=== PATIENT | female | born 1955 | race Caucasian/White ===

== ENCOUNTER 2019-08-13 06:17 | Inpatient (IN) ==
[~2019-08-13 06:17] MED LIST: DIAZEPAM 5 MG TABLET PO ONE; MAGNESIUM SULF RIDER 2 GM in PREMIX 1 EACH IV PRN; POTASSIUM CHLORIDE RIDER 10 MEQ in PREMIX 1 EACH IV PRN; diphenhydrAMINE CAP 25 MG CAPSULE PO ONE
[2019-08-13] MEDS ORDERED: DIAZEPAM 5 MG TABLET ONE (07:02)
[2019-08-13] MEDS ORDERED: diphenhydrAMINE CAP 25 MG CAPSULE ONE (07:02)
[2019-08-13] MEDS: SODIUM CHLORIDE 0.9% 1,000 ML IV SCH ×3 (07:06→22:10)
[2019-08-13] MEDS ORDERED: fentaNYL 100 MCG/2 ML VIAL ONE (07:29)
[2019-08-13] MEDS ORDERED: MIDAZOLAM 2 MG/2 ML VIAL ONE (07:29)
[2019-08-13] MEDS ORDERED: LIDOCAINE 1% 20 ML VIAL ONE ×2 (07:30→13:52)
[2019-08-13 07:57] LABS: ABG Base Excess -0.5 MMOL/L (-2.5-2.5); ABG HCO3 23.6 MMOL/L (20-26); ABG Oxygen Saturation 78.7 % (95-100); ABG PCO2 42.6 MM HG (35-48); ABG PH 7.374 (7.35-7.45); ABG PO2 46.9 MM HG (80-95); ABG TCO2 21.8 MMOL/L (23-27)
[2019-08-13] MEDS ORDERED: HYDROmorphone 2 MG/1 ML VIAL ONE (08:56)
[2019-08-13] MEDS ORDERED: HYDROmorphone 2 MG/1 ML VIAL IV ONE ×3 (09:06→12:00)
[2019-08-13] MEDS ORDERED: HEPARIN 5,000 UNIT/1 ML VIAL IV STA (11:42)
[2019-08-13 12:21] LABS: Basophils % 0.4 % (0.0-0.8); Eosinophils % 0.1 % (0.00-10.9); Hematocrit 44.5 VOL% (35.7-47.0); Hemoglobin 13.5 GM/DL (12.0-16.0); Immature Granulocytes % 0.3 %; Immature Granulocytes Absolute 0.02 #; Lymphocytes % 13.8 % (21.3-54.2); Mean Corpuscular HGB Conc 30.3 GM/DL (32-36); Mean Corpuscular Volume 103.2 FL (87-102); Mean Platelet Volume 11.7 FL (9.6-12.0); Monocytes % 4.1 % (1.7-12.7); Neutrophils % 81.3 % (38.7-73.9); Platelet Count 77 T/CUMM (130-400); Red Blood Count 4.31 MC/CUMM (3.8-5.5); Red Cell Distribution Width 15.8 % (9.3-17.3); White Blood Count 6.9 T/CUMM (4-12)
[2019-08-13 12:36] LABS: INR 1.2; PT Patient Result 13.5 SECS (9.6-12.2)
[2019-08-13 12:40] LABS: Partial Thromboplastin Time 193.5 SECS (20.8-36.0)
[2019-08-13 12:52] LABS: Albumin 3.3 G/DL (3.4-5.0); Bilirubin,Total 1.8 MG/DL (0.2-1.0); Calcium 8.8 MG/DL (8.5-10.1); Total Protein 6.9 G/DL (6.4-8.3)
[2019-08-13] MEDS ORDERED: THROMBIN TOPICAL (RECOMBINANT) 5,000 UNIT VIAL TOP ONE (13:50)
[2019-08-13] MEDS ORDERED: HEPARIN 5,000 UNIT/1 ML VIAL ONE (13:51)
[2019-08-13] MEDS ORDERED: BUPIVACAINE 0.5% 50 ML VIAL ONE (13:51)
[2019-08-13] MEDS ORDERED: VANCOMYCIN 500 MG VIAL ONE (14:39)
[2019-08-13 15:23] LABS: Apearance,Urine CLEAR (Clear); Bilirubin,Urine Negative (Negative); Blood, Urine Negative (Negative); Glucose,Urine (UA) Negative (Negative); Ketones,Urine Negative (Negative); Nitrite,Urine Negative (Negative); Protein,Urine 30 MG/DL; RBC,Urine 1 /HPF (0-4); Squamous Epithelial Cell,Urine Occasional /HPF (0-10); Urine Color Yellow (Yellow); Urine Specific Gravity > 1.060 (1.001-1.035)
[2019-08-13] MEDS ORDERED: TISSUE ADHESIVE 1 EACH APPLICATOR TOP ONE (15:52)
[2019-08-13] MEDS ORDERED: HYDROmorphone 2 MG/1 ML VIAL IV PRN (16:03)
[2019-08-13] MEDS ORDERED: ONDANSETRON 4 MG/2 ML VIAL IV PRN (16:03)
[2019-08-13] MEDS ORDERED: HEPARIN 10,000 UNIT/10 ML VIAL ONE (16:22)
[2019-08-13] MEDS ORDERED: SEVOFLURANE 1 UNIT/15 MINUTE INH ONE (16:22)
[2019-08-13] MEDS ORDERED: propofoL 200 MG/20 ML VIAL IV ONE (16:22)
[2019-08-13] MEDS ORDERED: DEXAMETHASONE 4 MG/1 ML VIAL ONE (16:22)
[2019-08-13] MEDS ORDERED: LIDOCAINE 2% 5 ML VIAL ONE (16:22)
[2019-08-13] MEDS ORDERED: PHENYLEPHRINE 10 MG/1 ML VIAL IV ONE (16:22)
[2019-08-13] MEDS ORDERED: ONDANSETRON 4 MG/2 ML VIAL ONE (16:22)
[2019-08-13] MEDS ORDERED: LACTATED RINGERS 1,000 ML IV SCH (16:30)
[2019-08-13 16:39] LABS: Basophils % 0.5 % (0.0-0.8); Eosinophils % 0.2 % (0.00-10.9); Hematocrit 41.3 VOL% (35.7-47.0); Hemoglobin 12.8 GM/DL (12.0-16.0); Immature Granulocytes % 0.5 %; Immature Granulocytes Absolute 0.03 #; Lymphocytes # 0.5 10*3/uL (1.4-4.0); Lymphocytes % 7.4 % (21.3-54.2); Mean Corpuscular Volume 102.7 FL (87-102); Mean Platelet Volume 11.9 FL (9.6-12.0); Monocytes % 2.6 % (1.7-12.7); Neutrophils % 88.8 % (38.7-73.9); Platelet Count 71 T/CUMM (130-400); Red Blood Count 4.02 MC/CUMM (3.8-5.5); Red Cell Distribution Width 15.9 % (9.3-17.3); White Blood Count 6.1 T/CUMM (4-12)
[2019-08-13] MEDS ORDERED: diphenhydrAMINE CAP 25 MG CAPSULE PO PRN (17:00)
[2019-08-13] MEDS ORDERED: MAGNESIUM HYDROXIDE SUSP 30 ML UDCUP PO PRN (17:00)
[2019-08-13] MEDS: DOXEPIN 25 MG CAPSULE PO SCH (21:42)
[2019-08-13] MEDS: ATORVASTATIN 40 MG TABLET PO SCH (21:42)
[2019-08-14 05:13] LABS: Basophils % 0.2 % (0.0-0.8); Hematocrit 41.6 VOL% (35.7-47.0); Hemoglobin 12.8 GM/DL (12.0-16.0); Immature Granulocytes % 0.4 %; Immature Granulocytes Absolute 0.02 #; Lymphocytes # 0.6 10*3/uL (1.4-4.0); Lymphocytes % 11.2 % (21.3-54.2); Mean Corpuscular HGB Conc 30.8 GM/DL (32-36); Mean Corpuscular Volume 102.5 FL (87-102); Mean Platelet Volume 13.1 FL (9.6-12.0); Monocytes % 4.7 % (1.7-12.7); Neutrophils % 83.5 % (38.7-73.9); Red Blood Count 4.06 MC/CUMM (3.8-5.5); Red Cell Distribution Width 15.6 % (9.3-17.3); White Blood Count 5.2 T/CUMM (4-12)
[2019-08-14 05:24] LABS: Platelet Count 69 T/CUMM (130-400)
[2019-08-14 05:27] LABS: Osmolality,Calculated 275.8 MOS/KG (273-304)
[2019-08-14 05:47] LABS: Macrocytosis Slight; Platelet Estimate Decreased
[2019-08-14] MEDS: LEVOTHYROXINE 75 MCG TABLET PO SCH (06:36)
[2019-08-14] MEDS: SODIUM CHLORIDE 0.9% 1,000 ML IV SCH (07:43)
[2019-08-14] MEDS: FUROSEMIDE 40 MG TABLET PO SCH (10:12)
[2019-08-14] MEDS: SILDENAFIL 20 MG TABLET PO SCH ×3 (10:12→21:18)
[2019-08-14] MEDS: ESTRADIOL 1 MG TABLET PO SCH (10:12)
[2019-08-14] MEDS: predniSONE 20 MG TABLET PO SCH (10:12)
[2019-08-14] MEDS: PANTOPRAZOLE 40 MG TABLET PO SCH (10:13)
[2019-08-14] MEDS: CLOPIDOGREL 75 MG TABLET PO SCH (10:13)
[2019-08-14] MEDS ORDERED: ALBUTEROL 2.5 MG/3 ML NEB RESP TX PRN (11:00)
[2019-08-14] MEDS: ALBUTEROL/IPRATROPIUM 3 ML NEB RESP TX SCH ×2 (13:30→19:33)
[2019-08-14] MEDS: METOPROLOL TARTRATE 25 MG TABLET PO SCH ×2 (14:43→21:18)
[2019-08-14] MEDS: DOXEPIN 25 MG CAPSULE PO SCH (21:18)
[2019-08-14] MEDS: ATORVASTATIN 40 MG TABLET PO SCH (21:18)
[2019-08-15] MEDS: ALBUTEROL/IPRATROPIUM 3 ML NEB RESP TX SCH ×4 (01:02→19:10)
[2019-08-15 06:16] LABS: Basophils % 0.1 % (0.0-0.8); Hematocrit 35.9 VOL% (35.7-47.0); Hemoglobin 11.2 GM/DL (12.0-16.0); Immature Granulocytes % 0.3 %; Immature Granulocytes Absolute 0.02 #; Lymphocytes # 0.7 10*3/uL (1.4-4.0); Lymphocytes % 9.2 % (21.3-54.2); Mean Corpuscular HGB Conc 31.2 GM/DL (32-36); Mean Corpuscular Volume 101.7 FL (87-102); Neutrophils % 82.4 % (38.7-73.9); Platelet Count 65 T/CUMM (130-400); Red Blood Count 3.53 MC/CUMM (3.8-5.5); Red Cell Distribution Width 15.9 % (9.3-17.3); White Blood Count 7.4 T/CUMM (4-12)
[2019-08-15] MEDS: LEVOTHYROXINE 75 MCG TABLET PO SCH (06:24)
[2019-08-15 06:30] LABS: Calcium 8.2 MG/DL (8.5-10.1); Osmolality,Calculated 285.4 MOS/KG (273-304)
[2019-08-15 06:41] LABS: Hypochromasia 1+; Lymphocytes 4 % (20-55); Platelet Estimate Decreased; Segmented Neutrophils 89 % (50-85); Total Cells Counted 100
[2019-08-15 06:42] LABS: Macrocytosis Slight
[2019-08-15] MEDS: METOPROLOL TARTRATE 25 MG TABLET PO SCH ×2 (09:07→20:32)
[2019-08-15] MEDS: ESTRADIOL 1 MG TABLET PO SCH (09:08)
[2019-08-15] MEDS: PANTOPRAZOLE 40 MG TABLET PO SCH (09:08)
[2019-08-15] MEDS: predniSONE 20 MG TABLET PO SCH (09:08)
[2019-08-15] MEDS: CLOPIDOGREL 75 MG TABLET PO SCH (09:08)
[2019-08-15] MEDS: SILDENAFIL 20 MG TABLET PO SCH ×3 (09:08→20:33)
[2019-08-15] MEDS: FUROSEMIDE 40 MG TABLET PO SCH (11:20)
[2019-08-15] MEDS ORDERED: MAGNESIUM SULF RIDER 2 GM in PREMIX 1 EACH IV PRN (13:25)
[2019-08-15] MEDS: POTASSIUM CHLORIDE 20 MEQ TABLET PO PRN ×3 (15:10→20:33)
[2019-08-15] MEDS: ATORVASTATIN 40 MG TABLET PO SCH (20:32)
[2019-08-15] MEDS: DOXEPIN 25 MG CAPSULE PO SCH (20:32)
[2019-08-16] MEDS: ALBUTEROL/IPRATROPIUM 3 ML NEB RESP TX SCH ×2 (00:57→07:36)
[2019-08-16 02:43] LABS: Basophils % 0.1 % (0.0-0.8); Hematocrit 37.6 VOL% (35.7-47.0); Hemoglobin 11.4 GM/DL (12.0-16.0); Immature Granulocytes % 0.5 %; Immature Granulocytes Absolute 0.04 #; Lymphocytes # 0.6 10*3/uL (1.4-4.0); Lymphocytes % 7.5 % (21.3-54.2); Mean Corpuscular HGB Conc 30.3 GM/DL (32-36); Mean Corpuscular Volume 102.7 FL (87-102); Mean Platelet Volume 11.8 FL (9.6-12.0); Monocytes % 6.9 % (1.7-12.7); Platelet Count 67 T/CUMM (130-400); Red Blood Count 3.66 MC/CUMM (3.8-5.5); Red Cell Distribution Width 15.8 % (9.3-17.3); White Blood Count 8.4 T/CUMM (4-12)
[2019-08-16 02:59] LABS: Calcium 8.1 MG/DL (8.5-10.1); Osmolality,Calculated 282.5 MOS/KG (273-304)
[2019-08-16] MEDS: LEVOTHYROXINE 75 MCG TABLET PO SCH (06:08)
[2019-08-16] MEDS: SILDENAFIL 20 MG TABLET PO SCH (08:23)
[2019-08-16] MEDS: CLOPIDOGREL 75 MG TABLET PO SCH (08:23)
[2019-08-16] MEDS: predniSONE 20 MG TABLET PO SCH (08:23)
[2019-08-16] MEDS: PANTOPRAZOLE 40 MG TABLET PO SCH (08:23)
[2019-08-16] MEDS: FUROSEMIDE 40 MG TABLET PO SCH (08:23)
[2019-08-16] MEDS: ESTRADIOL 1 MG TABLET PO SCH (08:23)
[2019-08-16] MEDS: METOPROLOL TARTRATE 25 MG TABLET PO SCH (08:25)
[2019-08-16 12:05] VITALS: BP 104/52
== END 2019-08-16 15:15 | disposition home or self-care (01) | DRG 253 ==
LOC: N.CL 06:17 → N.ICU 17:08 → N.5E 08-15 17:45
PROVIDERS: ADMIT Internal Medicine Cardiovascular Disease; ATTEND Internal Medicine Cardiovascular Disease

== ENCOUNTER 2019-09-28 08:50 | Inpatient (IN) ==
[2019-09-28] MEDS ORDERED: LACTATED RINGERS 1,000 ML IV ONE ×3 (09:21→16:23)
[2019-09-28 09:31] LABS: Basophils # 0.1 10*3/uL (0.0-0.2); Basophils % 0.4 % (0.0-0.8); Eosinophils # 0.1 10*3/uL (0.0-0.87); Hematocrit 36.4 VOL% (35.7-47.0); Immature Granulocytes % 0.8 %; Lymphocytes # 2.3 10*3/uL (1.4-4.0); Lymphocytes % 18.2 % (21.3-54.2); Mean Corpuscular HGB Conc 30.2 GM/DL (32-36); Mean Corpuscular Volume 99.7 FL (87-102); Mean Platelet Volume 10.8 FL (9.6-12.0); Monocytes % 4.8 % (1.7-12.7); Neutrophils % 74.8 % (38.7-73.9); Platelet Count 128 T/CUMM (130-400); Red Blood Count 3.65 MC/CUMM (3.8-5.5); Red Cell Distribution Width 17.1 % (9.3-17.3); White Blood Count 12.6 T/CUMM (4-12)
[2019-09-28 09:52] LABS: Calcium 8.1 MG/DL (8.5-10.1); Osmolality,Calculated 284.5 MOS/KG (273-304)
[2019-09-28] MEDS ORDERED: MORPHINE 4 MG/1 ML VIAL IV PRN (11:47)
[2019-09-28] MEDS ORDERED: ACETAMINOPHEN 325 MG TABLET PO PRN (11:47)
[2019-09-28] MEDS ORDERED: ONDANSETRON 4 MG/2 ML VIAL IV PRN ×2 (11:47→16:22)
[2019-09-28] MEDS ORDERED: FUROSEMIDE 40 MG TABLET PO PRN (11:53)
[2019-09-28] MEDS ORDERED: ALBUTEROL/IPRATROPIUM 3 ML NEB RESP TX ONE (13:03)
[2019-09-28] MEDS ORDERED: SODIUM CHLORIDE 0.9% 250 ML IV ONE (13:07)
[2019-09-28 13:38] LABS: ABG Base Excess -2.1 MMOL/L (-2.5-2.5); ABG HCO3 22.5 MMOL/L (20-26); ABG Oxygen Saturation 89.4 % (95-100); ABG PCO2 31.2 MM HG (35-48); ABG PH 7.444 (7.35-7.45); ABG PO2 58.4 MM HG (80-95); ABG TCO2 19.8 MMOL/L (23-27)
[2019-09-28] MEDS ORDERED: HEPARIN 5,000 UNIT/1 ML VIAL ONE (13:43)
[2019-09-28 13:49] LABS: Alanine Aminotransferase 12 U/L (13-56); Albumin 2.2 G/DL (3.4-5.0); Alkaline Phosphatase 88 U/L (45-117); Aspartate Amino Transferase 23 U/L (0-37); Bilirubin,Total < 0.39 MG/DL (0.2-1.0); Blood Urea Nitrogen 16 MG/DL (7-18); Calcium 7.9 MG/DL (8.5-10.1); Estimated Glom Filtration Rate 79 ML/MIN; Glucose 83 MG/DL (74-106); Osmolality,Calculated 274.7 MOS/KG (273-304); Total Protein 5.4 G/DL (6.4-8.3)
[2019-09-28] MEDS ORDERED: ALBUTEROL/IPRATROPIUM 3 ML NEB RESP TX PRN (13:49)
[2019-09-28 14:13] LABS: Hematocrit 29.5 VOL% (35.7-47.0)
[2019-09-28] MEDS ORDERED: PNEUMOCOCCAL VACCINE (13 VALENT) 0.5 ML SYRINGE IM ONE (14:16)
[2019-09-28] MEDS: SODIUM CHLORIDE 0.9% 1,000 ML IV SCH ×2 (14:30→20:39)
[2019-09-28] MEDS ORDERED: VANCOMYCIN 1,000 MG VIAL ONE (14:47)
[2019-09-28] MEDS ORDERED: SUGAMMADEX 200 MG/2 ML VIAL IV ONE (15:43)
[2019-09-28] MEDS ORDERED: VANCOMYCIN INJ 1,000 MG in SODIUM CHLORIDE 0.9% 250 ML IV ONE (16:00)
[2019-09-28] MEDS ORDERED: ONDANSETRON 4 MG/2 ML VIAL ONE (16:22)
[2019-09-28] MEDS ORDERED: HYDROmorphone 2 MG/1 ML VIAL IV PRN (16:22)
[2019-09-28] MEDS ORDERED: fentaNYL 100 MCG/2 ML VIAL ONE (16:22)
[2019-09-28] MEDS ORDERED: DESFLURANE 1 UNIT/15 MINUTE INH ONE (16:22)
[2019-09-28] MEDS ORDERED: LIDOCAINE 2% 5 ML VIAL ONE (16:22)
[2019-09-28] MEDS ORDERED: ETOMIDATE 40 MG/20 ML VIAL IV ONE (16:23)
[2019-09-28] MEDS ORDERED: SUCCINYLCHOLINE 200 MG/10 ML VIAL ONE (16:23)
[2019-09-28] MEDS ORDERED: ROCURONIUM 100 MG/10 ML VIAL IV ONE (16:23)
[2019-09-28] MEDS: MORPHINE 10 MG/1 ML VIAL IV PRN ×2 (16:33→16:45)
[2019-09-28] MEDS: SILDENAFIL 20 MG TABLET PO SCH ×2 (16:39→20:33)
[2019-09-28] MEDS: LEVOFLOXACIN INJ 500 MG in PREMIX 1 EACH IV SCH (16:39)
[2019-09-28] MEDS: VANCOMYCIN INJ 750 MG in SODIUM CHLORIDE 0.9% 250 ML IV SCH (18:12)
[2019-09-28] MEDS ORDERED: ALBUTEROL 0.63 MG/3 ML NEB RESP TX PRN (19:00)
[2019-09-28] MEDS: ALBUTEROL/IPRATROPIUM 3 ML NEB RESP TX SCH (20:00)
[2019-09-28 20:18] LABS: Hematocrit 27.4 VOL% (35.7-47.0)
[2019-09-28] MEDS: DOXEPIN 25 MG CAPSULE PO SCH (20:32)
[2019-09-28] MEDS: ATORVASTATIN 40 MG TABLET PO SCH (20:33)
[2019-09-28] MEDS: DOCUSATE SODIUM 100 MG CAPSULE PO SCH (20:33)
[2019-09-28] MEDS: tiZANidine 4 MG TABLET PO SCH (20:33)
[2019-09-28] MEDS: TICAGRELOR 90 MG TABLET PO SCH (20:33)
[2019-09-29] MEDS: ALBUTEROL/IPRATROPIUM 3 ML NEB RESP TX SCH ×4 (00:38→20:26)
[2019-09-29] MEDS: METOPROLOL TARTRATE 25 MG TABLET PO SCH ×3 (01:35→21:50)
[2019-09-29] MEDS: SODIUM CHLORIDE 0.9% 1,000 ML IV SCH ×2 (04:50→12:37)
[2019-09-29 05:07] LABS: Basophils % 0.3 % (0.0-0.8); Eosinophils % 0.4 % (0.00-10.9); Hematocrit 21.4 VOL% (35.7-47.0); Immature Granulocytes % 0.4 %; Immature Granulocytes Absolute 0.03 #; Lymphocytes # 0.6 10*3/uL (1.4-4.0); Lymphocytes % 8.4 % (21.3-54.2); Mean Corpuscular HGB Conc 29.9 GM/DL (32-36); Mean Corpuscular Volume 100.9 FL (87-102); Mean Platelet Volume 11.4 FL (9.6-12.0); Monocytes % 7.1 % (1.7-12.7); Neutrophils % 83.4 % (38.7-73.9); Platelet Count 75 T/CUMM (130-400); Red Blood Count 2.12 MC/CUMM (3.8-5.5); Red Cell Distribution Width 17.3 % (9.3-17.3); White Blood Count 7.4 T/CUMM (4-12)
[2019-09-29 05:11] LABS: Hemoglobin 6.4 GM/DL (12.0-16.0)
[2019-09-29] MEDS ORDERED: FUROSEMIDE 20 MG/2 ML VIAL IV PRN (05:23)
[2019-09-29] MEDS ORDERED: SODIUM CHLORIDE 0.9% 1,000 ML IV PRN (05:23)
[2019-09-29 06:04] LABS: Eosinophils 2 % (0-10); Lymphocytes 6 % (20-55); Platelet Estimate Decreased; Segmented Neutrophils 91 % (50-85); Total Cells Counted 100
[2019-09-29 06:05] LABS: Anisocytosis 1+; Macrocytosis Slight
[2019-09-29 06:06] LABS: Polychromasia Few; Stomatocytes Few
[2019-09-29] MEDS: LEVOTHYROXINE 75 MCG TABLET PO SCH (07:29)
[2019-09-29] MEDS: ESTRADIOL 1 MG TABLET PO SCH (07:59)
[2019-09-29] MEDS: TICAGRELOR 90 MG TABLET PO SCH ×2 (07:59→21:55)
[2019-09-29] MEDS: SILDENAFIL 20 MG TABLET PO SCH ×3 (07:59→21:50)
[2019-09-29] MEDS: DOCUSATE SODIUM 100 MG CAPSULE PO SCH ×2 (07:59→21:55)
[2019-09-29] MEDS: PANTOPRAZOLE 40 MG TABLET PO SCH (07:59)
[2019-09-29] MEDS ORDERED: PANTOPRAZOLE 40 MG TABLET PO SCH (09:00)
[2019-09-29] MEDS: VANCOMYCIN INJ 750 MG in SODIUM CHLORIDE 0.9% 250 ML IV SCH (12:37)
[2019-09-29] MEDS: LEVOFLOXACIN INJ 500 MG in PREMIX 1 EACH IV SCH (13:50)
[2019-09-29 18:13] LABS: Hemoglobin 10.1 GM/DL (12.0-16.0)
[2019-09-29 20:26] LABS: Hematocrit 32.1 VOL% (35.7-47.0); Hemoglobin 9.8 GM/DL (12.0-16.0)
[2019-09-29] MEDS: DOXEPIN 25 MG CAPSULE PO SCH (21:55)
[2019-09-29] MEDS: tiZANidine 4 MG TABLET PO SCH (21:55)
[2019-09-29] MEDS: ATORVASTATIN 40 MG TABLET PO SCH (21:55)
[2019-09-30] MEDS: ALBUTEROL/IPRATROPIUM 3 ML NEB RESP TX SCH ×4 (01:50→22:34)
[2019-09-30] MEDS: SODIUM CHLORIDE 0.9% 1,000 ML IV SCH (03:17)
[2019-09-30] MEDS: VANCOMYCIN INJ 750 MG in SODIUM CHLORIDE 0.9% 250 ML IV SCH (06:06)
[2019-09-30] MEDS: LEVOTHYROXINE 75 MCG TABLET PO SCH (06:06)
[2019-09-30 06:52] LABS: Calcium 7.5 MG/DL (8.5-10.1); Osmolality,Calculated 276.4 MOS/KG (273-304)
[2019-09-30 08:33] LABS: Basophils % 0.1 % (0.0-0.8); Eosinophils % 0.6 % (0.00-10.9); Hematocrit 28.8 VOL% (35.7-47.0); Hemoglobin 8.9 GM/DL (12.0-16.0); Immature Granulocytes % 0.3 %; Immature Granulocytes Absolute 0.02 #; Lymphocytes # 0.6 10*3/uL (1.4-4.0); Lymphocytes % 8.7 % (21.3-54.2); Mean Corpuscular HGB Conc 30.9 GM/DL (32-36); Mean Corpuscular Volume 94.4 FL (87-102); Mean Platelet Volume 11.8 FL (9.6-12.0); Monocytes % 6.7 % (1.7-12.7); Neutrophils % 83.6 % (38.7-73.9); Red Blood Count 3.05 MC/CUMM (3.8-5.5); Red Cell Distribution Width 19.6 % (9.3-17.3); White Blood Count 6.7 T/CUMM (4-12)
[2019-09-30 08:34] LABS: Platelet Count 66 T/CUMM (130-400)
[2019-09-30 08:50] LABS: Hypochromasia 1+; Ovalocytes Slight
[2019-09-30 08:51] LABS: Platelet Estimate Decreased
[2019-09-30] MEDS: MAGNESIUM SULF INJ 2 GM, POTASSIUM CHLORIDE INJ 20 MEQ in SODIUM CHLORIDE 0.9% 1,000 ML IV SCH ×2 (10:58→22:44)
[2019-09-30] MEDS: PANTOPRAZOLE 40 MG TABLET PO SCH (11:01)
[2019-09-30] MEDS: POTASSIUM CHLORIDE RIDER 10 MEQ in PREMIX 1 EACH IV SCH ×2 (11:01→13:33)
[2019-09-30] MEDS: TICAGRELOR 90 MG TABLET PO SCH ×2 (11:02→22:45)
[2019-09-30] MEDS: ESTRADIOL 1 MG TABLET PO SCH (11:02)
[2019-09-30] MEDS: DOCUSATE SODIUM 100 MG CAPSULE PO SCH ×2 (11:02→22:45)
[2019-09-30] MEDS: SILDENAFIL 20 MG TABLET PO SCH ×4 (11:08→22:46)
[2019-09-30] MEDS: METOPROLOL TARTRATE 25 MG TABLET PO SCH ×2 (11:10→22:45)
[2019-09-30] MEDS ORDERED: POTASSIUM CHLORIDE RIDER 10 MEQ in PREMIX 1 EACH IV SCH (13:30)
[2019-09-30] MEDS: LEVOFLOXACIN INJ 500 MG in PREMIX 1 EACH IV SCH (16:45)
[2019-09-30] MEDS: tiZANidine 4 MG TABLET PO SCH (22:45)
[2019-09-30] MEDS: ATORVASTATIN 40 MG TABLET PO SCH (22:45)
[2019-09-30] MEDS: DOXEPIN 25 MG CAPSULE PO SCH (22:45)
[2019-10-01] MEDS: VANCOMYCIN INJ 750 MG in SODIUM CHLORIDE 0.9% 250 ML IV SCH (00:26)
[2019-10-01] MEDS: ALBUTEROL/IPRATROPIUM 3 ML NEB RESP TX SCH ×2 (01:35→09:09)
[2019-10-01 06:32] LABS: Basophils % 0.2 % (0.0-0.8); Eosinophils # 0.1 10*3/uL (0.0-0.87); Eosinophils % 0.9 % (0.00-10.9); Hematocrit 27.9 VOL% (35.7-47.0); Hemoglobin 8.5 GM/DL (12.0-16.0); Immature Granulocytes % 0.3 %; Immature Granulocytes Absolute 0.02 #; Lymphocytes # 0.5 10*3/uL (1.4-4.0); Lymphocytes % 7.1 % (21.3-54.2); Mean Corpuscular HGB Conc 30.5 GM/DL (32-36); Mean Corpuscular Volume 95.2 FL (87-102); Monocytes % 5.7 % (1.7-12.7); Neutrophils % 85.8 % (38.7-73.9); Platelet Count 62 T/CUMM (130-400); Red Blood Count 2.93 MC/CUMM (3.8-5.5); Red Cell Distribution Width 19.4 % (9.3-17.3); White Blood Count 6.3 T/CUMM (4-12)
[2019-10-01] MEDS: LEVOTHYROXINE 75 MCG TABLET PO SCH (06:37)
[2019-10-01 06:48] LABS: Calcium 7.3 MG/DL (8.5-10.1); Osmolality,Calculated 271.7 MOS/KG (273-304)
[2019-10-01 06:52] LABS: Hypochromasia Slight; Platelet Estimate Decreased
[2019-10-01] MEDS ORDERED: LEVOFLOXACIN 500 MG TABLET PO SCH (09:00)
[2019-10-01] MEDS: DOCUSATE SODIUM 100 MG CAPSULE PO SCH (10:13)
[2019-10-01] MEDS: PANTOPRAZOLE 40 MG TABLET PO SCH (10:13)
[2019-10-01] MEDS: SILDENAFIL 20 MG TABLET PO SCH (10:13)
[2019-10-01] MEDS: ESTRADIOL 1 MG TABLET PO SCH (10:13)
[2019-10-01] MEDS: TICAGRELOR 90 MG TABLET PO SCH (10:13)
[2019-10-01] MEDS: METOPROLOL TARTRATE 25 MG TABLET PO SCH (10:14)
[2019-10-01 12:19] VITALS: BP 95/53
== END 2019-10-01 13:25 | disposition home or self-care (01) | DRG 907 ==
LOC: EDUNIT# → EDBD → N.EDINP 08:50 → N.ED 08:50 → N.EDINP 12:27 → N.3E 12:58
PROVIDERS: ADMIT Family Medicine; ATTEND Family Medicine

== ENCOUNTER 2019-10-23 09:32 | Inpatient (IN) ==
[2019-10-23 11:27] LABS: Basophils % 0.6 % (0.0-0.8); Eosinophils # 0.1 10*3/uL (0.0-0.87); Eosinophils % 1.1 % (0.00-10.9); Hematocrit 38.7 VOL% (35.7-47.0); Hemoglobin 11.7 GM/DL (12.0-16.0); Immature Granulocytes % 0.3 %; Immature Granulocytes Absolute 0.02 #; Lymphocytes # 0.5 10*3/uL (1.4-4.0); Lymphocytes % 7.7 % (21.3-54.2); Mean Corpuscular HGB Conc 30.2 GM/DL (32-36); Mean Corpuscular Volume 95.6 FL (87-102); Mean Platelet Volume 10.5 FL (9.6-12.0); Monocytes % 6.6 % (1.7-12.7); Neutrophils % 83.7 % (38.7-73.9); Platelet Count 115 T/CUMM (130-400); Red Blood Count 4.05 MC/CUMM (3.8-5.5); Red Cell Distribution Width 18.6 % (9.3-17.3); White Blood Count 6.3 T/CUMM (4-12)
[2019-10-23 11:37] LABS: PT Patient Result 10.9 SECS (9.8-11.9)
[2019-10-23] MEDS ORDERED: VANCOMYCIN INJ 1,000 MG in SODIUM CHLORIDE 0.9% 250 ML IV STA (11:41)
[2019-10-23 11:50] LABS: Albumin 2.5 G/DL (3.4-5.0); Bilirubin,Total 0.4 MG/DL (0.2-1.0); Osmolality,Calculated 270.8 MOS/KG (273-304); Total Protein 6.6 G/DL (6.4-8.3)
[2019-10-23] MEDS ORDERED: HEPARIN 5,000 UNIT/1 ML VIAL ONE (12:49)
[2019-10-23] MEDS: LACTATED RINGERS 1,000 ML IV SCH ×2 (13:49→17:29)
[2019-10-23] MEDS ORDERED: ALBUMIN 5% 12.5 GM/250 ML VIAL IV ONE (14:04)
[2019-10-23] MEDS ORDERED: oxyCODONE/ACETAMINOPHEN 5-325 MG TABLET PO PRN (16:39)
[2019-10-23] MEDS ORDERED: BISACODYL 5 MG TABLET PO PRN (16:39)
[2019-10-23] MEDS ORDERED: ONDANSETRON 4 MG/2 ML VIAL IV PRN (16:39)
[2019-10-23] MEDS ORDERED: ALBUTEROL 0.63 MG/3 ML NEB RESP TX PRN (16:45)
[2019-10-23] MEDS ORDERED: ALBUTEROL SULFATE INH PRN (16:45)
[2019-10-23] MEDS ORDERED: FUROSEMIDE 40 MG TABLET PO PRN (16:45)
[2019-10-23] MEDS ORDERED: LIDOCAINE 2% 5 ML VIAL ONE (17:00)
[2019-10-23] MEDS ORDERED: HYDROmorphone PCA 30 MG/30 ML SYRINGE IV SCH (17:00)
[2019-10-23] MEDS ORDERED: ONDANSETRON 4 MG/2 ML VIAL ONE ×2 (17:01→17:13)
[2019-10-23] MEDS ORDERED: fentaNYL 100 MCG/2 ML VIAL ONE (17:01)
[2019-10-23] MEDS ORDERED: SEVOFLURANE 1 UNIT/15 MINUTE INH ONE (17:01)
[2019-10-23] MEDS ORDERED: PHENYLEPHRINE 10 MG/1 ML VIAL IV ONE (17:01)
[2019-10-23] MEDS ORDERED: HEPARIN 10,000 UNIT/10 ML VIAL ONE (17:01)
[2019-10-23] MEDS ORDERED: METOPROLOL TARTRATE 5 MG/5 ML VIAL IV ONE (17:01)
[2019-10-23] MEDS ORDERED: PROTAMINE SULFATE 50 MG/5 ML VIAL IV ONE (17:02)
[2019-10-23] MEDS ORDERED: ROCURONIUM 100 MG/10 ML VIAL IV ONE (17:02)
[2019-10-23] MEDS ORDERED: GLYCOPYRROLATE 0.4 MG/2 ML VIAL ONE (17:02)
[2019-10-23] MEDS ORDERED: ETOMIDATE 40 MG/20 ML VIAL IV ONE (17:02)
[2019-10-23] MEDS ORDERED: HYDROCORTISONE 100 MG VIAL ONE (17:02)
[2019-10-23] MEDS ORDERED: NEOSTIGMINE 10 MG/10 ML VIAL ONE (17:02)
[2019-10-23] MEDS ORDERED: SODIUM CHLORIDE 0.9% 250 ML IV ONE (17:02)
[2019-10-23 17:40] LABS: Hematocrit 24.6 VOL% (35.7-47.0)
[2019-10-23 17:43] LABS: Hemoglobin 7.3 GM/DL (12.0-16.0)
[2019-10-23] MEDS ORDERED: ATORVASTATIN 40 MG TABLET PO SCH (21:00)
[2019-10-23] MEDS ORDERED: DOXEPIN 25 MG CAPSULE PO SCH (21:00)
[2019-10-23] MEDS ORDERED: tiZANidine 4 MG TABLET PO SCH (21:00)
[2019-10-23] MEDS: METOPROLOL TARTRATE 25 MG TABLET PO SCH (21:31)
[2019-10-23] MEDS: SILDENAFIL 20 MG TABLET PO SCH (21:31)
[2019-10-24] MEDS: oxyCODONE/ACETAMINOPHEN 5-325 MG TABLET PO PRN ×2 (01:34→09:32)
[2019-10-24] MEDS ORDERED: LEVOTHYROXINE 75 MCG TABLET PO SCH (06:30)
[2019-10-24 07:15] LABS: Calcium 8.3 MG/DL (8.5-10.1); Osmolality,Calculated 275.8 MOS/KG (273-304)
[2019-10-24] MEDS ORDERED: SODIUM CHLORIDE 0.9% 1,000 ML IV PRN (08:17)
[2019-10-24] MEDS ORDERED: SODIUM CHLOR 0.9% KCL 20 MEQ 20 MEQ/1,000 ML BAG IV SCH (08:30)
[2019-10-24 08:53] LABS: Basophils % 0.1 % (0.0-0.8); Hematocrit 19.5 VOL% (35.7-47.0); Immature Granulocytes % 0.5 %; Immature Granulocytes Absolute 0.06 #; Lymphocytes # 0.9 10*3/uL (1.4-4.0); Lymphocytes % 7.4 % (21.3-54.2); Mean Corpuscular HGB Conc 29.7 GM/DL (32-36); Mean Platelet Volume 11.8 FL (9.6-12.0); Monocytes % 7.2 % (1.7-12.7); Neutrophils % 84.8 % (38.7-73.9); Platelet Count 102 T/CUMM (130-400); Red Cell Distribution Width 18.8 % (9.3-17.3)
[2019-10-24 08:58] LABS: Hemoglobin 5.8 GM/DL (12.0-16.0); Red Blood Count 1.99 MC/CUMM (3.8-5.5); White Blood Count 11.7 T/CUMM (4-12)
[2019-10-24] MEDS ORDERED: ESTRADIOL 1 MG TABLET PO SCH (09:00)
[2019-10-24] MEDS ORDERED: PANTOPRAZOLE 40 MG TABLET PO SCH (09:00)
[2019-10-24] MEDS ORDERED: HEPARIN 5,000 UNIT/1 ML VIAL ONE (09:46)
[2019-10-24] MEDS ORDERED: VANCOMYCIN 500 MG VIAL ONE (09:47)
[2019-10-24] MEDS ORDERED: BUPIVACAINE 0.5% 50 ML VIAL ONE (09:47)
[2019-10-24] MEDS ORDERED: FAMOTIDINE 20 MG/2 ML VIAL IV ONE (10:22)
[2019-10-24] MEDS ORDERED: LACTATED RINGERS 1,000 ML IV SCH ×4 (10:30→23:30)
[2019-10-24] MEDS ORDERED: METHYLENE BLUE 10 ML VIAL IV ONE (10:52)
[2019-10-24] MEDS ORDERED: MICROFIBRILLAR COLLAGEN POWDER 1 GM CAN TOP ONE (11:57)
[2019-10-24] MEDS: METOPROLOL TARTRATE 25 MG TABLET PO SCH (12:07)
[2019-10-24] MEDS: SILDENAFIL 20 MG TABLET PO SCH (12:08)
[2019-10-24] MEDS ORDERED: PHENYLEPHRINE IV ONE (13:02)
[2019-10-24] MEDS ORDERED: SEVOFLURANE 1 UNIT/15 MINUTE INH ONE (13:28)
[2019-10-24] MEDS ORDERED: LIDOCAINE 2% 5 ML VIAL ONE (13:28)
[2019-10-24] MEDS ORDERED: KETAMINE 500 MG/10 ML VIAL ONE (13:28)
[2019-10-24] MEDS ORDERED: HEPARIN 10,000 UNIT/10 ML VIAL ONE (13:28)
[2019-10-24] MEDS ORDERED: MIDAZOLAM 2 MG/2 ML VIAL ONE (13:29)
[2019-10-24] MEDS ORDERED: GLYCOPYRROLATE 0.4 MG/2 ML VIAL ONE (13:29)
[2019-10-24] MEDS ORDERED: flumazeniL 0.5 MG/5 ML VIAL IV ONE (13:29)
[2019-10-24] MEDS ORDERED: fentaNYL 100 MCG/2 ML VIAL ONE (13:29)
[2019-10-24] MEDS ORDERED: SUCCINYLCHOLINE 200 MG/10 ML VIAL ONE (13:29)
[2019-10-24] MEDS ORDERED: PHENYLEPHRINE 10 MG/1 ML VIAL IV ONE (13:29)
[2019-10-24] MEDS ORDERED: PHENYLEPHRINE 1 MG/10 ML SYRINGE IV ONE (13:29)
[2019-10-24] MEDS ORDERED: SODIUM CHLORIDE 0.9% 100 ML IV ONE (13:30)
[2019-10-24] MEDS ORDERED: NEOSTIGMINE 10 MG/10 ML VIAL ONE (13:30)
[2019-10-24] MEDS ORDERED: LACTATED RINGERS 1,000 ML IV ONE (13:30)
[2019-10-24] MEDS ORDERED: ROCURONIUM 100 MG/10 ML VIAL IV ONE (13:30)
[2019-10-24] MEDS ORDERED: SODIUM CHLORIDE 0.9% 250 ML IV ONE (13:30)
[2019-10-24] MEDS: PHENYLEPHRINE DRIP 40 MG/250 ML PREMIX IV PRN ×3 (14:00→21:51)
[2019-10-24] MEDS ORDERED: PHENYLEPHRINE DRIP 40 MG/250 ML PREMIX IV ONE (14:14)
[2019-10-24 14:19] LABS: Basophils % 0.2 % (0.0-0.8); Hematocrit 29.4 VOL% (35.7-47.0); Hemoglobin 8.5 GM/DL (12.0-16.0); Immature Granulocytes % 2.6 %; Immature Granulocytes Absolute 0.32 #; Lymphocytes # 1.5 10*3/uL (1.4-4.0); Lymphocytes % 12.3 % (21.3-54.2); Mean Corpuscular HGB Conc 28.9 GM/DL (32-36); Mean Corpuscular Volume 99.7 FL (87-102); Mean Platelet Volume 11.5 FL (9.6-12.0); Monocytes % 7.7 % (1.7-12.7); NRBC # 0.06 10*3/uL; Neutrophils % 77.2 % (38.7-73.9); Platelet Count 96 T/CUMM (130-400); Red Blood Count 2.95 MC/CUMM (3.8-5.5); Red Cell Distribution Width 17.6 % (9.3-17.3); White Blood Count 12.1 T/CUMM (4-12)
[2019-10-24 14:27] LABS: Calcium 7.4 MG/DL (8.5-10.1); Osmolality,Calculated 278.7 MOS/KG (273-304)
[2019-10-24 14:29] LABS: ABG HCO3 12.1 MMOL/L (20-26); ABG PCO2 42.4 MM HG (35-48); ABG TCO2 12.7 MMOL/L (23-27)
[2019-10-24 14:38] LABS: ABG PH 7.095 (7.35-7.45)
[2019-10-24 15:32] LABS: Anisocytosis 2+; Macrocytosis 1+; Poikilocytosis Slight; Polychromasia 1+
[2019-10-24 15:33] LABS: Spherocytes 1+
[2019-10-24 15:34] LABS: Platelet Estimate Adequate
[2019-10-24 16:42] LABS: ABG Base Excess -13.3 MMOL/L (-2.5-2.5); ABG HCO3 13.3 MMOL/L (20-26); ABG Oxygen Saturation 93.2 % (95-100); ABG PCO2 33.8 MM HG (35-48); ABG PH 7.214 (7.35-7.45); ABG PO2 81.3 MM HG (80-95); ABG TCO2 14.4 MMOL/L (23-27); Glucose Heart Surgery 104 MG/DL (74-106)
[2019-10-24] MEDS ORDERED: SODIUM BICARB IV SCH (18:54)
[2019-10-24] MEDS ORDERED: LACTATED RINGERS IV SCH (18:54)
[2019-10-24 20:22] LABS: Calcium 6.9 MG/DL (8.5-10.1); Osmolality,Calculated 281.4 MOS/KG (273-304)
[2019-10-24 20:40] LABS: Hematocrit 23.3 VOL% (35.7-47.0); Hemoglobin 7.1 GM/DL (12.0-16.0)
[2019-10-25] MEDS: SODIUM BICARB IV SCH ×4 (00:55→21:25)
[2019-10-25] MEDS: LACTATED RINGERS IV SCH ×4 (00:55→21:25)
[2019-10-25] MEDS: PHENYLEPHRINE DRIP 40 MG/250 ML PREMIX IV PRN ×4 (00:55→10:15)
[2019-10-25 05:30] LABS: ABG Base Excess -11.6 MMOL/L (-2.5-2.5); ABG HCO3 15.1 MMOL/L (20-26); ABG Oxygen Saturation 99.4 % (95-100); ABG PCO2 28.3 MM HG (35-48); ABG TCO2 13.4 MMOL/L (23-27); Allen Test Positive; Pt O2 Delivery Device Ventilator
[2019-10-25 05:59] LABS: Basophils % 0.2 % (0.0-0.8); Hemoglobin 6.7 GM/DL (12.0-16.0); Immature Granulocytes % 0.6 %; Immature Granulocytes Absolute 0.11 #; Lymphocytes # 1.3 10*3/uL (1.4-4.0); Lymphocytes % 6.7 % (21.3-54.2); Mean Corpuscular HGB Conc 30.5 GM/DL (32-36); Mean Corpuscular Volume 94.4 FL (87-102); Mean Platelet Volume 11.9 FL (9.6-12.0); NRBC # 0.19 10*3/uL; Neutrophils % 85.5 % (38.7-73.9); Red Cell Distribution Width 18.8 % (9.3-17.3)
[2019-10-25 06:04] LABS: White Blood Count 19.1 T/CUMM (4-12)
[2019-10-25 06:05] LABS: Platelet Count 86 T/CUMM (130-400); Red Blood Count 2.33 MC/CUMM (3.8-5.5)
[2019-10-25] MEDS ORDERED: SODIUM CHLORIDE 0.9% 1,000 ML IV PRN ×2 (06:18→08:14)
[2019-10-25] MEDS ORDERED: HYDROmorphone 2 MG/1 ML VIAL IV PRN (06:20)
[2019-10-25] MEDS ORDERED: NOREPINEPHRINE 4 MG/4 ML VIAL IV ONE ×2 (06:58→07:01)
[2019-10-25] MEDS ORDERED: NOREPINEPHRINE 4 MG in SODIUM CHLORIDE 0.9% 246 ML IV PRN (07:00)
[2019-10-25] MEDS ORDERED: NOREPINEPHRINE 8 MG in SODIUM CHLORIDE 0.9% 242 ML IV PRN (07:08)
[2019-10-25] MEDS ORDERED: ALTEPLASE 2 MG VIAL IV ONE (07:34)
[2019-10-25 07:46] LABS: Bilirubin,Total 1.1 MG/DL (0.2-1.0); Calcium 7.2 MG/DL (8.5-10.1)
[2019-10-25 07:47] LABS: Albumin 1.9 G/DL (3.4-5.0); Osmolality,Calculated 284.1 MOS/KG (273-304); Total Protein 4.2 G/DL (6.4-8.3)
[2019-10-25] MEDS: SODIUM CHLORIDE 0.9% 1,000 ML IV SCH (07:55)
[2019-10-25 08:44] LABS: Anisocytosis 1+; Band Neutrophils 10 % (0-10); Lymphocytes 5 % (20-55); Macrocytosis 1+; Nucleated Red Blood Cells 1 (0-5); Ovalocytes 1+; Platelet Estimate Decreased; Polychromasia Few; Segmented Neutrophils 77 % (50-85); Total Cells Counted 100
[2019-10-25 09:30] LABS: Thyroid Stimulating Hormone 7.2 uIU/ml (0.358-3.74)
[2019-10-25] MEDS: PHENYLEPHRINE INJ 160 MG in SODIUM CHLORIDE 0.9% 234 ML IV PRN ×2 (12:30→20:01)
[2019-10-25 15:01] LABS: PT Patient Result 20.9 SECS (9.8-11.9)
[2019-10-25 15:04] LABS: Partial Thromboplastin Time 31.6 SECS (23.9-33.8)
[2019-10-25] MEDS: PANTOPRAZOLE 40 MG VIAL IV SCH (16:31)
[2019-10-25 17:06] LABS: Apearance,Urine CLOUDY (Clear); Bilirubin,Urine Negative (Negative); Blood, Urine Large mg/dL (Negative); Glucose,Urine (UA) Negative (Negative); Hyaline Casts,Urine 6 /LPF (0-3); Ketones,Urine 5 mg/dL (Negative); Mucus,Urine Occasional /LPF (Occasional); Nitrite,Urine Negative (Negative); Protein,Urine 100 MG/DL; RBC,Urine 612 /HPF (0-4); Squamous Epithelial Cell,Urine Occasional /HPF (0-10); Urine Color Amber (Yellow); Urine Specific Gravity 1.014 (1.001-1.035); Urine Urobilinogen < 2.0 EU/DL (0.2-1.0); WBC,Urine 11 /HPF (0-6)
[2019-10-25] MEDS: SODIUM HYPOCHLORITE 0.25% IRRIG 473 ML BOTTLE TOP SCH (17:26)
[2019-10-25 21:13] LABS: Hematocrit 31.2 VOL% (35.7-47.0)
[2019-10-25 21:15] LABS: Hemoglobin 9.9 GM/DL (12.0-16.0)
[2019-10-25] MEDS: NOREPINEPHRINE 16 MG in SODIUM CHLORIDE 0.9% 234 ML IV PRN (22:44)
[2019-10-26] MEDS: PHENYLEPHRINE INJ 160 MG in SODIUM CHLORIDE 0.9% 234 ML IV PRN ×2 (03:46→11:11)
[2019-10-26 04:45] LABS: Basophils % 0.2 % (0.0-0.8); Hemoglobin 9.1 GM/DL (12.0-16.0); Immature Granulocytes % 0.8 %; Immature Granulocytes Absolute 0.13 #; Lymphocytes # 0.5 10*3/uL (1.4-4.0); Lymphocytes % 2.6 % (21.3-54.2); Mean Corpuscular HGB Conc 32.5 GM/DL (32-36); Mean Corpuscular Volume 93.3 FL (87-102); Mean Platelet Volume 12.4 FL (9.6-12.0); Monocytes % 2.4 % (1.7-12.7); Red Cell Distribution Width 17.5 % (9.3-17.3); White Blood Count 17.3 T/CUMM (4-12)
[2019-10-26 04:47] LABS: ABG Base Excess -10.2 MMOL/L (-2.5-2.5); ABG HCO3 16.7 MMOL/L (20-26); ABG Oxygen Saturation 52.4 % (95-100); ABG PH 7.228 (7.35-7.45)
[2019-10-26 04:50] LABS: Platelet Count 35 T/CUMM (130-400)
[2019-10-26 04:59] LABS: ABG PO2 35.7 MM HG (80-95)
[2019-10-26] MEDS: NOREPINEPHRINE 16 MG in SODIUM CHLORIDE 0.9% 234 ML IV PRN ×2 (05:15→12:13)
[2019-10-26 05:29] LABS: Albumin 1.2 G/DL (3.4-5.0); Bilirubin,Total 0.6 MG/DL (0.2-1.0); Total Protein 3.1 G/DL (6.4-8.3)
[2019-10-26] MEDS: SODIUM BICARB IV SCH ×3 (05:31→16:01)
[2019-10-26] MEDS: DEXTROSE 5% IV SCH ×2 (05:31→16:01)
[2019-10-26] MEDS: NACL 0.9% IV SCH ×2 (05:31→16:01)
[2019-10-26] MEDS: LACTATED RINGERS IV SCH (05:32)
[2019-10-26 05:45] LABS: Calcium 5.4 MG/DL (8.5-10.1)
[2019-10-26 06:23] LABS: Band Neutrophils 20 % (0-10); Lymphocytes 7 % (20-55); Nucleated Red Blood Cells 4 (0-5); Segmented Neutrophils 73 % (50-85); Total Cells Counted 100
[2019-10-26 06:24] LABS: Anisocytosis 1+; Platelet Estimate Decreased
[2019-10-26 07:18] LABS: ABG Base Excess -7.6 MMOL/L (-2.5-2.5); ABG HCO3 18.1 MMOL/L (20-26); ABG Oxygen Saturation 89.8 % (95-100); ABG PH 7.315 (7.35-7.45); ABG PO2 65.1 MM HG (80-95); ABG TCO2 16.6 MMOL/L (23-27); Allen Test Positive; Pt O2 Delivery Device Ventilator
[2019-10-26] MEDS: PANTOPRAZOLE 40 MG VIAL IV SCH (08:09)
[2019-10-26] MEDS: SODIUM HYPOCHLORITE 0.25% IRRIG 473 ML BOTTLE TOP SCH (08:52)
[2019-10-26] MEDS ORDERED: ALBUMIN 25% 50 GM in PREMIX 1 EACH IV ONE (09:47)
[2019-10-26] MEDS: SODIUM CHLORIDE 0.9% 1,000 ML IV SCH (09:52)
[2019-10-26 13:39] VITALS: BP 66/31
== END 2019-10-26 13:48 | disposition expired | DRG 907 ==
LOC: EDBD → EDUNIT# → N.ED 09:32 → N.3E 13:10 → N.EDINP 16:39 → N.ICU 10-24 13:38
PROVIDERS: ADMIT Surgery; ATTEND Surgery